=== PATIENT | male | born 1975 | race Two or more races ===

== ENCOUNTER 2020-05-18 16:14 | Emergency (ER) | payer SELFPAY ==
[~2020-05-18] VITALS: Ht 175.3 cm; Wt 81.6 kg
[2020-05-18 16:14] VITALS: BP 140/96
--- NOTE | 2020-05-18 16:14 | NUR ---
ED Nurse Note: Pt BIBA [address] from [address] c/o ETOH, unk amount. Per EMS, pt was found lying on the floor, unconcsious. Unable to obtain personal and medical information. Pt is arousable to pain but non verbal. No fever. Breathing even and unlabored. ERPA at bedside.
--- NOTE | 2020-05-18 16:35 | NUR ---
ED Nurse Note: IV line established. Blood and urine sent to lab.
[2020-05-18 16:42] LABS: BASOPHILS % (AUTO) 0.5 % (0.0-2.0); EOSINOPHILS % (AUTO) 0.2 % (0.0-3.0); HEMATOCRIT 41.8 % (42.0-52.0); MEAN CORPUSCULAR VOLUME 101 FL (80-99); MONOCYTES % (AUTO) 5.6 % (1.0-10.0); NEUTROPHILS % (AUTO) 78.8 % (45.0-75.0); PLATELET COUNT 150 K/UL (150-450); RED BLOOD COUNT 4.15 M/UL (4.70-6.10); RED CELL DISTRIBUTION WIDTH 12.3 % (11.6-14.8); WHITE BLOOD COUNT 10.4 K/UL (4.8-10.8)
[2020-05-18 16:45] LABS: APPEARANCE,URINE CLEAR; BILIRUBIN, URINE NEGATIVE (NEGATIVE); COLOR,URINE PALE YELLOW; GLUCOSE, URINE (UA) NEGATIVE (NEGATIVE); KETONES,URINE NEGATIVE (NEGATIVE); LEUKOCYTE ESTERASE ,URINE NEGATIVE (NEGATIVE); NITRITE,URINE NEGATIVE (NEGATIVE); PH,URINE 7 (4.5-8.0); PROTEIN,URINE 2+ (NEGATIVE); UROBILINOGEN,URINE NORMAL MG/DL (0.0-1.0)
[2020-05-18 16:56] LABS: ANION GAP 11 mmol/L (5-15); BLOOD UREA NITROGEN 7 mg/dL (7-18); CALCIUM 8.2 MG/DL (8.5-10.1); CARBON DIOXIDE 27 MMOL/L (21-32); CHLORIDE 101 MMOL/L (98-107); CREATININE 0.6 MG/DL (0.55-1.30); POTASSIUM 3.4 MMOL/L (3.5-5.1); SODIUM 139 MMOL/L (136-145)
[2020-05-18 17:12] LABS: ALANINE AMINOTRANSFERASE 31 U/L (12-78); ALKALINE PHOSPHATASE 48 U/L (46-116); ASPARTATE AMINO TRANSFERASE 66 U/L (15-37); BILIRUBIN,TOTAL 0.4 MG/DL (0.2-1.0)
--- NOTE | 2020-05-18 17:30 | NUR ---
ED Nurse Note: pt taken to CT via sofíaredgar accompanied by a tech.
--- NOTE | 2020-05-18 17:48 | NUR ---
ED Nurse Note: Pt returned from CT.
--- NOTE | 2020-05-18 17:52 | Diagnostic Imaging Report ---
EXAM: CT Head Without Intravenous Contrast CLINICAL HISTORY: ALOC TECHNIQUE: Axial computed tomography images of the head/brain without intravenous contrast. CTDI is 53.4 mGy and DLP is 1179.10 mGy-cm. One or more of the following dose reduction techniques were used: automated exposure control, adjustment of the mA and/or kV according to patient size, use of iterative reconstruction technique. COMPARISON: None FINDINGS: Brain: Unremarkable. No hemorrhage. No significant white matter disease. No edema. Ventricles: Mild cerebral volume loss. No ventriculomegaly. Bones/joints: Unremarkable. No acute fracture. Soft tissues: Unremarkable. Sinuses: Opacification of the left maxillary sinus, left ethmoid air cells, and left frontal sinus. Hyperostosis of the sinus real suggestive of chronic sinusitis. Mastoid air cells: Unremarkable as visualized. No mastoid effusion. Other: Cerumen in the external auditory canals. IMPRESSION: No acute intracranial abnormality identified.
[2020-05-18 18:53] VITALS: BP 138/84
--- NOTE | 2020-05-18 19:06 | NUR ---
HAND-OFF: Report given to Luli PALAFOX.
--- NOTE | 2020-05-18 19:06 | Emergency Room Report ---
History of Present Illness General Chief Complaint: Alcohol Intoxication Source: Patient (Dangelo Givens) Present Illness HPI 47-year-old male with no known significant past medical history brought in by paramedics due to alcohol intoxication. Upon arrival patient is altered. Patient identity is unknown upon arrival. Appears to be stable with stable vital signs. Patient to be reevaluated after he wakes up. Blood alcohol level above 600. No signs of trauma noted. (Dangelo Givens) Allergies: Coded Allergies: UNABLE TO ASSESS (Unverified , 05/18/20) COVID-19 Screening COVID-19 risk:Contact w/high r: No Has patient experienced haines: No COVID-19 Testing performed CAT CRACKER OPERATOR: No (Dangelo Givens) Patient History Past Medical History: see triage record Past Surgical History: unable to obtain Family History: unable to obtain Reviewed Nursing Documentation: PMH: Agreed; PSxH: Agreed (Dangelo Haro) Nursing Documentation-PMH Past Medical History Deferred: Pt Cognitively Impaired Past Medical History: Deferred (Dangelo Givens) Review of Systems All Other Systems: negative except mentioned in HPI (Dangelo Givens) Physical Exam Vital Signs Date Time Temp Pulse Resp B/P (MAP) Pulse Ox O2 Delivery O2 Flow Rate FiO2 05/18/20 16:09 98.2 96 16 140/96 (111) 99 Room Air (Dangelo Givens) Medical Decision Making PA Attestation All diagnoses and treatment plans were reviewed and discussed with my supervising physician Dr. Desir (Dangelo Givens) PA Attestation I participated in the care of this patient along with LEIDY Pimentel (Ernesto Desir MD) Diagnostic Impression: Primary Impression: Acute alcoholic intoxication ER Course 47-year-old male with no known significant past medical history brought in by paramedics due to alcohol intoxication. Upon arrival patient is altered. Patient identity is unknown upon arrival. Appears to be stable with stable vital signs. Patient to be reevaluated after he wakes up. Blood alcohol level above 600. No signs of trauma noted. Ddx considered but are not limited to: Alcohol intoxication with altered level of consciousness, alcohol intoxication causing pancreatitis, alcohol abuse, multi drug use and alcohol intoxication Vital signs: are WNL, pt. is afebrile H&PE are most consistent with: alcohol intoxication ORDERS: CBC, head CT, CMP, UA, tox screen, ETOH serum level ER intervention: NS bolus, Zofran, Pepcid I signed out the patient to Dr. Desir at 8PM (Dangelo Givens) ER Course Patient signed out to me by previous physician Dr. Desir. He remained hemodynamically stable and neurovascularly intact in the emergency department. He was given time to metabolize the heavy amount of alcohol that he is drinking. He was watched until he was clinically sober. He was ambulating felt the emergency department without much difficulty and tolerating p.o. He awoke and provided his name as Ezra De La Rosa. Given information follow-up with primary care. Given prescription for thiamine and folate. Discharged in stable condition. (Jeevan Shannon M.D.) ER Course Assumed care of the patient from the previous provider at approximately 1999. Please refer to initial note for full history and physical exam. Briefly, 44-year-old male brought in for altered mental status found to be in acute alcohol intoxication. Alcohol greater than 600. Remainder of labs are within normal limits. CT head unremarkable for acute injury. Patient will continue to metabolize. Signed out to oncoming provider pending sobriety and reevaluation for ultimate disposition. (Ernesto Desir MD) CT/MRI/US Diagnostic Results CT/MRI/US Diagnostic Results : Imaging Test Ordered: CT head no contrast Impression : Brain:Unremarkable. No hemorrhage. No significant white matter disease. No edema. Ventricles: Mild cerebral volume loss. No ventriculomegaly. Bones/joints:Unremarkable. No acute fracture. Soft tissues:Unremarkable. Sinuses:Opacification of the left maxillarysinus, left ethmoid air cells, and left frontal sinus. Hyperostosis of the sinuswalls suggestive of chronic sinusitis. Mastoid air cells:Unremarkable as visualized. No mastoid effusion. Other:Cerumen in the external auditorycanals. IMPRESSION: No acute intracranial abnormalityidentified. (Dangelo Givens) Last Vital Signs Date Time Temp Pulse Resp B/P (MAP) Pulse Ox O2 Delivery O2 Flow Rate FiO2 05/18/20 18:53 98.2 92 19 138/84 100 Room Air (Dangelo Givens) Disposition: HOME, SELF-CARE Condition: Stable Scripts Folic Acid* (FOLIC ACID*) 1 Mg Tablet 1 MG ORAL DAILY for SUPPLEMENT, #30 TAB Prov: Ernesto Desir MD 05/18/20 Thiamine Hcl* (VITAMIN B-1*) 100 Mg Tablet 100 MG ORAL DAILY, #30 TAB 0 Refills Prov: Ernesto Desir MD 05/18/20 Referrals: NOT CHOSEN IPA/,REFERRING (PCP) Patient Instructions: Alcohol Abuse and Nutrition Dangelo Givens May 18, 2020 19:06 Jeevan Shannon M.D. May 19, 2020 05:54 Ernesto Desir MD May 20, 2020 22:30
[2020-05-18] MEDS ORDERED: VITAMIN B-1100 MG ORAL (20:01)
[2020-05-18] MEDS ORDERED: FOLIC ACID1 MG ORAL (20:01)
[2020-05-18 21:30] VITALS: BP 146/86
--- NOTE | 2020-05-18 21:30 | NUR ---
Nurse Note: Pt awake, slurred speech. Pt stated his name is Ezra and stated his social security number. Registration aware but information did not match. Will ask pt when sober. Pt denies food and water at this time. All safety measures met; will continue to monitor.
[2020-05-19] VITALS: BP 134/78
--- NOTE | 2020-05-19 | NUR ---
Nurse Note: Pt asleep, no signs of resp distress, VSS. Pt did not show n/v. SLIV noted on LT extremity. Pt not ready for ambulation. All safety measures met; will continue to monitor.
[2020-05-19 04:20] VITALS: BP 138/82
--- NOTE | 2020-05-19 05:20 | NUR ---
Nurse Note: Pt arousable, no signs of distress. Pt able to answer questions appropriately, no slurring of speech noted. Pt smells of urine; pt denies new clothing. Pt offered water, no signs of n/v/d. Will inform MD about pt condition. All safety measures continues to be met. Addendum: 05/19/20 at 0525 by [email or web address] IV removed; site clean and bandaged.
[2020-05-19 06:15] VITALS: BP 128/88
--- NOTE | 2020-05-19 06:15 | NUR ---
ED Nurse Note: Pt cleared by health care Provider for discharge. DC instructions/prescription was given and explained to pt and verbalized understanding of teachings. All medical deviecs such as ID band removed. Pt is AAO x4, ambulatory and left with all personal belongings.
== END 2020-05-19 06:15 | disposition home or self-care (01) ==
LOC: EDBD 16:14 → EMR 16:37
DX: F10.129 Alcohol abuse with intoxication, unspecified (principal); R41.82 Altered mental status, unspecified
CPT/HCPCS: 36415; 70450; 80053; 80307; 81003; 85025; 96361; 96374; 96375; 99284; G0480; J2405; J7030; S0028